=== PATIENT | male | born 1935 | race Caucasian/White ===

== ENCOUNTER 2018-02-17 11:16 | Day surgery (SDC) | payer MEDICARE ==
--- NOTE | 2018-02-17 07:24 | History and Physical - Fer[place] ---
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 Due to the failure of therapy, he is here for an implanted catheter trial infusion with Hydromorphone to determine if the implantation of a permanent system can be of any value in pain control. PAST MEDICAL HISTORY: Hypertension, sleep apnea, and peripheral neuropathy. PAST SURGICAL HISTORY: Multiple lumbar spinal fusions. MEDICATIONS ON ADMISSION: List to be provided. ALLERGIES: [] FAMILY/PSYCHOSOCIAL HISTORY: Social history - Caffeine. Family history - Diabetes, coronary artery disease, and hypertension. SYSTEMS REVIEW: PHYSICAL EXAMINATION: Height is 5'3", weight is 180. Vital signs are not available. HEENT: Within normal limits. LUNGS: Clear and bronchitic. HEART: Rapid and regular. ABDOMEN: [] MUSCULOSKELETAL: Further examination shows extensive laminectomy scar lumbar spine, diffuse tenderness throughout the low back. Range of motion does produce pain not only to the lower back, but extending to both lower extremities. His sensory montelongo and lower extremities are abnormal across the front and back surface. Motor weakness identified bilaterally. An assistive device was used for ambulation. Diffuse weakness throughout both legs. NEUROLOGIC: Cranial nerves are intact. IMPRESSION: POST LUMBAR LAMINECTOMY SYNDROME, ICD-10 CODE M96.1 WITH RADICULOPATHY ICD-10 CODE M54.16 AND M54.17. PLAN: This patient is here for an implanted catheter infusion trial with Hydromorphone to determine if the implantation of a permanent system can be of any value in pain control. The potential risks, side effects, and complications have all been carefully reviewed and discussed. He does have a history of a dural tear and a resulting spinal headache. We discussed the spinal procedure with the potential for a spinal headache. Epidural blood patch will be used if necessary. The procedure will be considered outpatient although an overnight stay will be evaluated. The potential risks, side effects , and complications including paralysis, nerve root injury, and spinal headache have been reviewed. He understands and wanted to proceed. The procedure will be considered outpatient although an overnight stay will be evaluated because of the epidural blood patchy. JOB NUMBER: [id number] [facility]
[~2018-02-17 11:16] MED LIST: ACETAMINOPHEN 1,000 MG/100 ML BTL IV ONE; CEFAZOLIN 2 Gram 2 GM/50 ML BAG IVPB ONE; FAMOTIDINE 20MG TABLET PO ONE; HYDROMORPHONE PF 2MG/ML AMP 0.008 MG in 0.9 % SODIUM CHLORIDE 10ML VIA 0.996 ML IV ONE; HYDROMORPHONE PF 2MG/ML AMP 8 MG in 0.9 % SODIUM CHLORIDE 500ML 496 ML IV ONE; MECLIZINE 25 MG TABLET PO ONE; METOCLOPRAMIDE 10 MG TABLET PO ONE
[2018-02-17] MEDS ORDERED: FENTANYL PF 100MCG/2ML VIAL IV ONE (11:17)
[2018-02-17] MEDS ORDERED: PROPOFOL 10 MG/ML VIAL IV ONE (11:17)
[2018-02-17] MEDS ORDERED: 0.9 % SODIUM CHLORIDE 10 ML VIAL IVP ONE (11:17)
[2018-02-17] MEDS ORDERED: BUPIVACAINE 0.5% W/EPI MPF 30 ML VIAL IVP ONE (11:17)
[2018-02-17] MEDS ORDERED: CEFAZOLIN 1G VIAL IM ONE (11:17)
[2018-02-17] MEDS ORDERED: METOCLOPRAMIDE 10 MG TABLET PO ONE (11:17)
[2018-02-17] MEDS ORDERED: LIDOCAINE 1% W/EPI 1:200,000 MPF 30ML SQ ONE (11:17)
[2018-02-17] MEDS ORDERED: LIDOCAINE 2% MDV (20MG/ML) 20ML VIAL IV ONE (11:17)
[2018-02-17] MEDS ORDERED: MIDAZOLAM HCL 2MG/2ML VIAL IV ONE (11:17)
[2018-02-17] MEDS ORDERED: HYDROMORPHONE HCL 2 MG/ML VIAL IM PRN ×2 (15:12)
[2018-02-17] MEDS ORDERED: TEMAZEPAM 15 MG CAPSULE PO PRN ×2 (15:12)
[2018-02-17] MEDS ORDERED: METOCLOPRAMIDE HCL 10 MG/2 ML VIAL IVP PRN (15:12)
[2018-02-17] MEDS ORDERED: SENNOSIDES/DOCUSATE SODIUM UD CAPSULE PO PRN ×2 (15:12)
[2018-02-17] MEDS ORDERED: METOCLOPRAMIDE 10 MG TABLET PO PRN (15:12)
[2018-02-17] MEDS ORDERED: AL HYDROX/MAG HYDROX 30ML UD PO PRN (15:12)
[2018-02-17] MEDS ORDERED: DIPHENHYDRAMINE HCL 25 MG CAPSULE PO PRN ×2 (15:12)
[2018-02-17] MEDS ORDERED: DIPHENHYDRAMINE HCL 50 MG/ML VIAL IVP PRN ×2 (15:12)
[2018-02-17] MEDS ORDERED: ACETAMINOPHEN 325 MG TAB PO PRN ×2 (15:12)
[2018-02-17] MEDS ORDERED: OXYCODONE/APAP 10MG-325MG TABLET PO PRN ×2 (15:12)
[2018-02-17] MEDS ORDERED: HYDROCODONE/APAP 7.5/325MG TABLET PO PRN ×2 (15:12)
[2018-02-17] MEDS: RINGERS SOLUTION,LACTATED 1,000 ML IV SCH ×2 (17:41→20:03)
[2018-02-17] MEDS: CEFAZOLIN 2 Gram 2 GM/50 ML BAG IVPB SCH (21:29)
[2018-02-17] MEDS: METFORMIN 500 MG TABLET PO SCH (21:29)
[2018-02-17] MEDS ORDERED: METOPROLOL SUCC 50 MG TABLET PO SCH (22:00)
[2018-02-18] MEDS: RINGERS SOLUTION,LACTATED 1,000 ML IV SCH ×2 (02:39→04:40)
[2018-02-18] MEDS: CEFAZOLIN 2 Gram 2 GM/50 ML BAG IVPB SCH ×2 (05:19→09:09)
[2018-02-18] MEDS: METFORMIN 500 MG TABLET PO SCH (09:04)
[2018-02-18] MEDS ORDERED: LISINOPRIL 5 MG TABLET PO SCH (10:00)
[2018-02-18] MEDS ORDERED: SERTRALINE HCL 50 MG TABLET PO SCH (10:00)
--- NOTE | 2018-02-19 13:49 | RADIOLOGY REPORT ---
EXAM: LUMBAR SPINE HISTORY: PAIN STIMULATOR PLACEMENT. TECHNIQUE: A single AP view of the lumbar spine was performed. FINDINGS: The stimulator tip is at the T12 level. IMPRESSION: THE STIMULATOR TIP IS AT THE T12 LEVEL. JOB NUMBER: [id number] [facility]TDD
--- NOTE | 2018-02-20 08:45 | Operative Note ---
DATE OF SURGERY: 02/17/18 PREOPERATIVE DIAGNOSIS: POST LUMBAR LAMINECTOMY RADICULOPATHY. OPERATION: 1. FLUOROSCOPICALLY-GUIDED ACCESS SPINAL SPACE AT L2-3, PLACEMENT OF THIN- WALLED SPINAL CATHETER POSITIONED T11. 2. DIAGNOSTIC MYELOGRAPHY WITH RADIOLOGIC SUPERVISION AND INTERPRETATION. 3. SPINAL OPIOID BOLUS HYDROMORPHONE AT 0.002 MG SPINAL SPACE. 4. INCISION, SUBCUTANEOUS DISSECTION, AND ANCHORING OF SPINAL CATHETER TO SUPRASPINOUS FASCIA WITH ANCHORING DEVICE AND NONABSORBABLE SUTURE. 5. INCISION, SUBCUTANEOUS DISSECTION, AND CREATION OF SUBCUTANEOUS POUCH AT RIGHT POSTERIOR GLUTEAL MARGIN. PLACEMENT OF SECONDARY CATHETER. 6. TUNNELING BETWEEN MIDLINE POUCH TO POSTERIOR GLUTEAL POUCH CARRYING SPINAL CATHETER INTO POSTERIOR POUCH. INTERFACE SPINAL CATHETER WITH SECOND CATHETER COMPONENT BY WAY OF CONNECTOR. 7. TUNNELING SECOND CATHETER COMPONENT 6 CM SUPERIOR FROM POUCH EXITING SKIN. INTERFACE EXTERNAL CATHETER TO EXTERNAL PUMP SET TO INFUSE HYDROMORPHONE AT 0.08 MG A DAY. 8. CLOSURE OF MIDLINE INCISION, VICRYL FOR FASCIA, DARRELL FOR SKIN. CLOSURE OF POSTERIOR GLUTEAL POUCH RUNNING NYLON. DRESSINGS PLACED. NO BLOOD PATCH DUE TO MULTIPLE LEVEL OF SURGERY. SURGEON: TITA MORENO D.O. ANESTHESIA: LOCAL SEDATION. ANESTHESIA PROVIDER: NICK HELM CRNA. INDICATION: This patient presents with a history of lumbar laminectomy and spinal surgery from 2-3 to 5-1. Due to the failure of all therapies, he is here for a spinal opioid infusion trial with Hydromorphone to determine if the implantation of a permanent system can be of any value in pain control. PROCEDURE: Intravenous line, vital sign monitoring, IV sedation by Anesthesia, patient position prone. Sterile prep, sterile technique. The spinal access and interface at 5-4 and 3 were completely obliterated by bone. The spinal interspace at 2-3 could be identified, skin infiltrated, and using AP and lateral imaging, a 20-gauge spinal needle paramedian approach beveled with a long axis inserted into the spinal space on lateral image. With CSF flow, a thin -walled spinal catheter was advanced positioned at upper endplate T11. Diagnostic myelography was performed; the resulting flow characteristics were appropriate for the space. There was no response on the part of the patient. With this confirmation of catheter position and noted CSF flow through the catheter, a bolus of spinal opioid Hydromorphone 0.002 mg was given into the spinal space. The catheter was clamped with continued CSF noted. The skin above and below the needle infiltrated, incision made, and subcutaneous dissection was conducted to the supraspinous fascia. The needle was removed and the catheter was anchored to the supraspinous fascia with an anchor and nonabsorbable suture. At the right posterior gluteal margin; a site ultimately picked by the patient for the pump, skin infiltrated, incision made, and subcutaneous dissection was conducted to form a small pouch. A tunneling tool was used to carry the spinal catheter into the posterior gluteal pouch. At the pouch, the spinal catheter was interfaced with a second catheter component by way of a connector. The second catheter was then tunneled 6 cm superior to the site exiting the skin. The external catheter was then interfaced to an external pump, which was set to deliver Hydromorphone at 0.08 mg per day. The midline incision was closed Vicryl for fascia and darrell for skin. The posterior gluteal pouch was closed with running nylon. No blood patch was performed because of limited and no access. He was transported to the Recovery Room once dressing was placed securing the catheter and all connections under the sterile dressing. He was transported to the Recovery Room flat, pillow under head and knees. He will stay flat for four hours, slowly elevated for one, and then be considered as a possible candidate for discharge. DISCHARGE INSTRUCTIONS IN THE MORNIN. Sites remain clean and dry. No showering or bathing in any way that would disrupt dressings. If it happens, contact the clinic. 2. Spinal opioid side-effects including; respiratory depression, nausea, vomiting, constipation, urinary retention, lightheadedness, or rash have all be discussed and reviewed. If it happens, contact the clinic or go to a local Emergency Room. The trial will run 12-14 days. During this period of time, we will evaluate pain control and side-effects. Three increases will be set in the office during this period of time. We will increase until we get appropriate degrees of pain control at which point the increases will be terminated and he will be considered a candidate for full pump implant. The maximum duration of the trial is 7-14 days. All other instructions provided, numbers to contact with problems given, he will be discharged in the morning. cc: Dr. Reji Foster JOB NUMBER: [id number] [facility]
== END 2018-02-18 10:20 | disposition home or self-care (01) ==
LOC: SUR 11:16 → MEDSURG 16:05 → SUR 02-18 10:20
PROVIDERS: ATTEND Pain Medicine Interventional Pain Medicine
DX: M54.16 Radiculopathy, lumbar region (principal); I10 Essential (primary) hypertension; E11.9 Type 2 diabetes mellitus without complications; E78.00 Pure hypercholesterolemia, unspecified; Z79.01 Long term (current) use of anticoagulants; G47.33 Obstructive sleep apnea (adult) (pediatric)
CPT/HCPCS: 62350; 62362; 00630; 72020; Q9967; J3010; J0690 ×2; J1170; J7040; J7120

== ENCOUNTER → 2018-03-03 | Day surgery (SDC) | payer MEDICARE ==
[~2018-03-03] MED LIST changes: +0.9 % SODIUM CHLORIDE 10 ML VIAL IVP ONE; +BUPIVACAINE 0.5% W/EPI MPF 30 ML VIAL IVP ONE; +CEFAZOLIN 1G VIAL IM ONE; +FENTANYL PF 100MCG/2ML VIAL IV ONE; +HYDROMORPHONE HCL 0.04 GM in 0.9 % SODIUM CHLORIDE 10ML VIA 20 ML IV ONE; -HYDROMORPHONE PF 2MG/ML AMP 8 MG in 0.9 % SODIUM CHLORIDE 500ML 496 ML IV ONE; +LIDOCAINE 1% W/EPI 1:200,000 MPF 30ML SQ ONE; +LIDOCAINE 2% MDV (20MG/ML) 20ML VIAL IV ONE; +MIDAZOLAM HCL 2MG/2ML VIAL IV ONE; +PROPOFOL 10 MG/ML VIAL IV ONE
--- NOTE | 2018-03-03 06:20 | History and Physical Report ---
DATE: 03/02/2018. CHIEF COMPLAINT AND HISTORY OF CHIEF COMPLAINT: This patient presents with an ongoing implanted spinal catheter infusion trial with hydromorphone. He is here for a permanent implant. The pain pattern is a postlaminectomy radiculopathy. The treatment history is extensive. The implanted catheter trial infusion with hydromorphone has resulted in 75 percent pain control. Due to the failure of all other therapies and the success of the trial, he presents today for implantation of a permanent system. PAST MEDICAL HISTORY: Unchanged. PAST SURGICAL HISTORY: Unchanged. MEDICATIONS ON ADMISSION: Unchanged. ALLERGIES: Unchanged. SOCIAL HISTORY: Unchanged. FAMILY HISTORY: Unchanged. REVIEW OF SYSTEMS: The patient is appropriate and in no acute distress. The remainder of the systems review is unchanged. PHYSICAL EXAMINATION: General: Height and weight unavailable. Vital Signs: Not available. HEENT: Within normal limits. Lungs: Clear. Heart: Regular rate and rhythm. Abdomen: Nontender. Musculoskeletal: Examination of the musculoskeletal system shows the dressings are in place for the implanted catheter trial. The external pump is identified. His underlying pain pattern is a postlaminectomy radiculopathy. His motor and sensory field evaluation shows weakness in both legs and sensory abnormalities in both legs. Ambulation: Assistive device dependent. Neurologic: Cranial nerves are intact. IMPRESSION: 1. POSTLUMBAR LAMINECTOMY SYNDROME, ICD-10 CODE M96.1. 2. LUMBAR RADICULOPATHY, ICD-10 CODE M54.16 AND M54.17. 3. IMPLANTED SPINAL CATHETER INFUSION TRIAL WITH HYDROMORPHONE. PLAN: Due to the success of the implanted catheter trial and the failure of other therapies, he is here for permanent implant. We will consider this final stage to be outpatient, although an overnight stay can be evaluated. We will start the pump at the endpoint of the spinal infusion trial which is 0.16 mg per day. JOB NUMBER: [id number] cc: Latrell Peters
--- NOTE | 2018-03-05 12:17 | Operative Note ---
DATE: 03/03/2018. PREOPERATIVE DIAGNOSES: 1. POSTLUMBAR LAMINECTOMY SYNDROME, ICD-10 CODE M96.1. 2. RADICULOPATHY, ICD-10 CODE M54.16 AND M54.17. 3. IMPLANTED SPINAL CATHETER INFUSION WITH HYDROMORPHONE. PROCEDURES: 1. Fluoroscopically guided incision, subcutaneous dissection, and formation of subcutaneous pouch at right posterior gluteal margin for placement of pump identified as a Medtronic 20 mL programmable pump. 2. Incision, subcutaneous dissection, resection and removal of external spinal catheter. 3. Revision and resection of internal spinal catheter with second catheter component by way of connector. This catheter component to interface to pump. 4. Placement of 20 mL programmable pump prefilled with hydromorphone 1.0 mg per mL concentration interfaced to revised catheter by way of revised connector. 5. Placement of pump and catheter into pouch at right posterior gluteal margin. Pump pouch formed to suitable size and depth for 20 mL programmable Medtronic pump securing to posterior fascia with nonabsorbable suture at three points using pump eyelets. 6. Placement of curved 24-gauge Garcia needle into access port programmable pump , aspirating and clearing catheter of 1.0 mL of opioid and cerebrospinal fluid mixture. 7. Diagnostic myelography with radiologic supervision and interpretation. Contrast flowing to the pump showing flow characteristics. Pump contrast moving through the catheter pump connection showing no obstruction or leaks. Tip of the catheter at T11-12 identified with smooth, linear flow of contrast noted. Appropriate myelogram characteristics identified. Contrast study confirming functionality and integrity of the system. 8. Closure of incisions using Stratafix suture, #2-0 for the fascia and #3-0 for the skin. Dermabond closure. 9. Programming of pump to deliver by continuous infusion hydromorphone at 0.09 mg per day. SURGEON: Hayder Sanders D.O. ANESTHESIA: Local sedation. ANESTHESIA PROVIDER: YANIRA. INDICATIONS: This patient presents with a history of intractable postlumbar laminectomy pain pattern. Due to the failure of therapy, an implanted spinal catheter infusion trial with hydromorphone was conducted with greater than 75 percent pain control. Due to the failure of all therapies and the success of the trial, he presents today for implantation of a permanent system. DESCRIPTION OF PROCEDURE: Intravenous lines, vital sign monitoring, and intravenous sedation. Sterile prep and sterile technique by Anesthesia. The patient was positioned prone. At the right posterior gluteal margin, at the previously placed subcutaneous pouch, the skin was infiltrated. An incision was made and subcutaneous dissection was conducted to form a pouch of suitable size and depth for the pump identified as a Medtronic 20 mL programmable pump. The internal catheter connection to the external catheter was identified, clamped, and cut. The external catheter was removed by pulling away from the incision. The internal catheter was then revised and resected with a second catheter component by way of a connector. This catheter component would interface to the pump. Antibiotic irrigation and Bovie for hemostasis. The 20 mL programmable Medtronic pump prefilled with hydromorphone at 1.0 mg per mL was then placed onto the field. This pump was interfaced with the revised catheter. It was then placed into the pouch and secured to the posterior fascia with nonabsorbable suture at three points with pump eyelets. With the pump in the pouch, a 24-gauge Garcia needle was inserted into the access port, and 1.0 mL of catheter contents was aspirated, clearing the catheter of opioid and cerebrospinal fluid mixture. Contrast was then injected for the resulting myelogram with radiologic supervision and interpretation. This showed contrast moving through the pump. Contrast moved through the pump catheter connection with no obstruction or leaks. The tip of the catheter was identified at T11-12 with normal flow characteristics. Myelogram characteristics confirmed full functionality, and integrity of the system was then confirmed. The incision was then closed using Stratafix suture, #2-0 for the fascia and #3-0 for the skin. Dermabond closure was then placed. The pump was programmed to deliver by continuous infusion hydromorphone at 0.9 mg a day. He was transported to the recovery room stable with no side effects from the procedure or the sedation. DISCHARGE INSTRUCTIONS: 1. The sites are to remain clean and dry. Although the Dermabond will allow showering, he should not sit in water. 2. He will resume his antibiotic with Levaquin for another seven days. 3. The office is to contact the patient in the next 24 to 48 hours to set up an appointment in seven to ten days to evaluate the site. Until then he is to keep his activities low. 4. All other instructions were provided including numbers to contact with problems. He will be discharged and evaluated in the office. JOB NUMBER: [id number] cc: Reji Black M.D. MTDAngela
== END | disposition home or self-care (01) ==
LOC: SUR 11:32
PROVIDERS: ATTEND Pain Medicine Interventional Pain Medicine
DX: M96.1 Postlaminectomy syndrome, not elsewhere classified (principal); M54.16 Radiculopathy, lumbar region; M54.17 Radiculopathy, lumbosacral region
CPT/HCPCS: 62350; 62362; 00630; 62367; Q9967; J3010; J0690; J1170; C1755